=== PATIENT | male | born 1945 | race Caucasian/White ===

== ENCOUNTER 2022-08-24 15:05 | Inpatient (IN) | payer OTHER ==
[~2022-08-24] VITALS: Ht 182.9 cm; Wt 90.7 kg
--- NOTE | 2022-08-24 15:05 | NUR ---
[facility] EMS, pt is waiting in EMS gurney because there are no ER beds available.
[2022-08-24] MEDS ORDERED: ACETAMINOPHEN 325 MG TABLET PO ONE (15:30)
--- NOTE | 2022-08-24 16:05 | NUR ---
Pt was triaged but remains in the EMS gurney in the hallway.
[2022-08-24] MEDS ORDERED: AMLO-212 MT (16:07)
[2022-08-24] MEDS ORDERED: ROSU5TAB13 MT (16:07)
[2022-08-24] MEDS ORDERED: ATOR10TA PO (16:07)
[2022-08-24] MEDS ORDERED: LOSA50TA39 MT (16:07)
[2022-08-24 16:36] LABS: HEMATOCRIT 37.8 % (36.7-47.1); MEAN CORPUSCULAR HEMOGLOBIN 30.6 uug (23.8-33.4); MEAN CORPUSCULAR VOLUME 92.6 fL (73.0-96.2); PLATELET COUNT (AUTO) 124 K/uL (152-348)
--- NOTE | 2022-08-24 16:39 | NUR ---
Pt to room 2A.
[2022-08-24 16:56] LABS: BAND % (MANUAL) 2 % (0-10); LYMPHOCYTES % (MANUAL) 25 % (20-40)
[2022-08-24 16:57] LABS: MONOCYTES % (MANUAL) 15 % (2-10); NEUTROPHILS % (MANUAL) 58 % (42-75)
[2022-08-24 17:00] LABS: CARBON DIOXIDE 26 mmol/L (21-32); CHLORIDE 102 mmol/L (98-107); CREATININE 1.2 mg/dL (0.6-1.3); GLUCOSE 110 mg/dL (74-106); POTASSIUM 3.6 mmol/L (3.5-5.1); UREA NITROGEN, BLOOD 15 mg/dL (7-18)
[2022-08-24 17:08] LABS: ALANINE AMINOTRANSFERASE 23 U/L (16-63); ALKALINE PHOSPHATASE 72 U/L (50-136); ASPARTATE AMINOTRANSFERASE 30 U/L (15-37); BILIRUBIN,DIRECT 0.4 mg/dL (0.0-0.2); TOTAL PROTEIN, SERUM 7.8 g/dL (6.4-8.2)
[2022-08-24] MEDS ORDERED: IV NORMAL SALINE 1000 ML BAG IV ONE (18:15)
--- NOTE | 2022-08-24 19:25 | NUR ---
EVELINA Bowden RN
--- NOTE | 2022-08-24 22:28 | NUR ---
Called [facility] to ask for updates regarding transfer, spoke with Albino and was told that no beds available at this time. Will call me back for updates
--- NOTE | 2022-08-25 01:45 | NUR ---
Called [facility] to ask for updates, spoke with Ezio. was told no beds available at this moment. Will give us a call once they get a transfer info
--- NOTE | 2022-08-25 03:04 | NUR ---
Nathen MARTIN called. Patient is authorized to be admitted at [facility]
--- NOTE | 2022-08-25 03:11 | NUR ---
Called Dr Lerner, made aware that patient was given authorization to stay
--- NOTE | 2022-08-25 03:43 | NUR ---
Called patients bank representative Richard Watkins and left a voicemail regarding patients admission.
--- NOTE | 2022-08-25 04:44 | NUR ---
Called [facility] for panel call
--- NOTE | 2022-08-25 04:49 | NUR ---
Patient has been accepted by [facility]
[2022-08-25 05:28] LABS: *BILIRUBIN,URIN NEGATIVE (NEGATIVE); *CLARITY,URINE CLEAR (CLEAR); *COLOR,URINE YELLOW (YELLOW); *KETONES,URINE NEGATIVE (NEGATIVE); *UROBILINOGEN,URINE 0.2 E.U./dl (NORMAL); LEUKOCYTE ESTERASE ,URINE TRACE (NEGATIVE); NITRITE, URINE NEGATIVE (NEGATIVE); PH,URINE 5.5 (5.0-8.0); UGLUCOSE NEGATIVE (NEGATIVE)
[2022-08-25 05:29] LABS: *BLOOD, URINE TRACE (NEGATIVE)
[2022-08-25 05:30] LABS: BACTERIA,URINE RARE /HPF (NONE SEEN); WBC,URINE 0-3 /HPF (0-3)
[2022-08-25] MEDS ORDERED: MAGNESIUM HYDROXIDE 30 ML LIQUID UDC PO PRN (05:30)
[2022-08-25] MEDS ORDERED: ONDANSETRON 4 MG/2 ML VIAL IV PRN (05:30)
[2022-08-25] MEDS ORDERED: ACETAMINOPHEN 325 MG TABLET PO PRN (05:30)
[2022-08-25] MEDS ORDERED: REMEDY ESSENTIAL ZINC PASTE 113 GM TP PRN (05:30)
[2022-08-25 05:31] LABS: SQUAMOUS EPITHELIAL CELL,UR NONE SEEN /HPF (NONE SEEN)
[2022-08-25] MEDS ORDERED: ENOXAPARIN SODIUM 40 MG/0.4 ML DISP.SYRIN SQ SCH (05:49)
[2022-08-25] MEDS ORDERED: CEFTRIAXONE /D5W 50ML IVPB **ER PYXIS IV ONE (05:57)
[2022-08-25] MEDS: CEFTRIAXONE 1 G in IV DEXTROSE 5% 50 ML IV SCH (06:10)
[2022-08-25 06:15] LABS: MEAN CORPUSCULAR HEMOGLOBIN 30.9 uug (23.8-33.4); MEAN CORPUSCULAR VOLUME 92.7 fL (73.0-96.2); PLATELET COUNT (AUTO) 99 K/uL (152-348)
[2022-08-25 06:21] LABS: CARBON DIOXIDE 27 mmol/L (21-32); CHLORIDE 104 mmol/L (98-107); CREATININE 1.3 mg/dL (0.6-1.3); GLUCOSE 97 mg/dL (74-106); MAGNESIUM 1.8 mg/dL (1.8-2.4); PHOSPHOROUS 3.5 mg/dL (2.5-4.9); UREA NITROGEN, BLOOD 23 mg/dL (7-18)
[2022-08-25] MEDS ORDERED: AZITHROMYCIN 500MG/ D5W 250ML IVPB **ER PYXIS ONLY IV ONE (06:26)
[2022-08-25] MEDS ORDERED: ENOXAPARIN SODIUM 40 MG/0.4 ML DISP.SYRIN SQ ONE (06:26)
[2022-08-25 06:29] LABS: THYROID STIMULATING HORMONE 0.413 mIU/mL (0.358-3.740)
[2022-08-25 06:34] LABS: BILIRUBIN,DIRECT 0.3 mg/dL (0.0-0.2); TOTAL PROTEIN, SERUM 6.8 g/dL (6.4-8.2)
[2022-08-25] MEDS: AZITHROMYCIN IV 500 MG in IV DEXTROSE 5% 250 ML IV SCH ×2 (06:39→07:30)
--- NOTE | 2022-08-25 07:07 | NUR ---
Report given to tim King RN
[2022-08-25] MEDS: LOSARTAN POTASSIUM 50 MG TABLET PO SCH ×2 (09:00→22:04)
[2022-08-25] MEDS: PANTOPRAZOLE SODIUM 40 MG VIAL IV SCH (09:00)
[2022-08-25] MEDS: AMLODIPINE 5 MG TABLET PO SCH (09:00)
[2022-08-25] MEDS ORDERED: AMLODIPINE 5 MG TABLET ONE (09:07)
[2022-08-25] MEDS ORDERED: PANTOPRAZOLE SODIUM 40 MG VIAL ONE (09:07)
[2022-08-25 12:44] LABS: LYMPHOCYTES % (MANUAL) 35 % (20-40); MONOCYTES % (MANUAL) 16 % (2-10); NEUTROPHILS % (MANUAL) 49 % (42-75)
--- NOTE | 2022-08-25 14:00 | NUR ---
Called the tele and asked Diana for any covid bed. No available bed as of now.
--- NOTE | 2022-08-25 18:26 | NUR ---
Called Tele again for update regarding a bed for the covid patient, still no available bed. Notified charge nurse. Served dinner for the patient.
--- NOTE | 2022-08-25 18:29 | NUR ---
[facility] (son) contact # . [facility] () contact # .
--- NOTE | 2022-08-25 19:20 | NUR ---
Endorsed to Kenna FERRARI.
--- NOTE | 2022-08-25 19:21 | NUR ---
GAVIN murphy [facility]
--- NOTE | 2022-08-25 19:30 | NUR ---
Patient has been admitted since 08/24, still no room avaliable. Patient is still in ER and ER charting will be done. Received call from Shala FERRARI, awating for avaliable COVID room. Waiting for call back when bed is ready.
[2022-08-26] MEDS ORDERED: CEFTRIAXONE /D5W 50ML IVPB **ER PYXIS IV ONE (05:45)
[2022-08-26] MEDS: CEFTRIAXONE 1 G in IV DEXTROSE 5% 50 ML IV SCH (05:50)
[2022-08-26 07:06] LABS: HEMATOCRIT 35.8 % (36.7-47.1); MEAN CORPUSCULAR HEMOGLOBIN 30.8 uug (23.8-33.4); MEAN CORPUSCULAR VOLUME 92.2 fL (73.0-96.2); PLATELET COUNT (AUTO) 103 K/uL (152-348)
[2022-08-26 07:15] LABS: CREATININE 1.3 mg/dL (0.6-1.3); MAGNESIUM 1.8 mg/dL (1.8-2.4); PHOSPHOROUS 3.9 mg/dL (2.5-4.9); POTASSIUM 3.4 mmol/L (3.5-5.1)
--- NOTE | 2022-08-26 07:30 | NUR ---
RECEIVED PT IN NAD; VSS. DENIES RESPIRATORY SYMPTOMS; AFEBRILE. RESTING QUIETLY
--- NOTE | 2022-08-26 07:31 | NUR ---
SBAR given to Roshan FERRARI
[2022-08-26] MEDS: LOSARTAN POTASSIUM 50 MG TABLET PO SCH ×2 (09:00→20:51)
[2022-08-26] MEDS: PANTOPRAZOLE SODIUM 40 MG VIAL IV SCH (09:00)
[2022-08-26] MEDS ORDERED: ENOXAPARIN SODIUM 40 MG/0.4 ML DISP.SYRIN SQ SCH (09:00)
[2022-08-26] MEDS: AMLODIPINE 5 MG TABLET PO SCH (09:00)
[2022-08-26] MEDS ORDERED: AMLODIPINE 5 MG TABLET ONE (10:00)
--- NOTE | 2022-08-26 10:25 | NUR ---
PT COMPLAINS OF LT LEG PAIN 8/10 SHARP; WILL GIVE TYLENOL
[2022-08-26] MEDS ORDERED: ENOXAPARIN SODIUM 40 MG/0.4 ML DISP.SYRIN SQ ONE (10:34)
[2022-08-26] MEDS ORDERED: ACETAMINOPHEN 325 MG TABLET ONE (10:39)
[2022-08-26] MEDS ORDERED: PANTOPRAZOLE SODIUM 40 MG VIAL ONE (10:40)
--- NOTE | 2022-08-26 11:15 | NUR ---
PT RESTING IN BED; STATES HIS PAIN ON THE LLE IS NOW 2/10 ACHING; STATES SATISFACTION W/ PAIN RELIEF
[2022-08-26 11:31] LABS: NEUTROPHILS % (MANUAL) 0 % (42-75)
--- NOTE | 2022-08-26 12:00 | NUR ---
PT RESTING IN BED WATCHING TV; VSS
[2022-08-26] MEDS ORDERED: AZITHROMYCIN IV 500 MG in IV DEXTROSE 5% 250 ML IV SCH (13:00)
[2022-08-26] MEDS ORDERED: POTASSIUM CHLORIDE 20 MEQ TAB.PRT.SR PO ONE (15:00)
--- NOTE | 2022-08-26 17:00 | NUR ---
RESTING IN BED; DENIES DISCOMFORT
--- NOTE | 2022-08-26 19:33 | NUR ---
NILSONAR to Candy FERRARI for endorsment of care
[2022-08-26] MEDS ORDERED: ATORVASTATIN 10 MG TABLET PO SCH (21:00)
[2022-08-26] MEDS ORDERED: AZIT250T PO (21:01)
[2022-08-26] MEDS ORDERED: ASCO500P18 PO (21:01)
[2022-08-26] MEDS ORDERED: ASPI-618 PO (21:01)
[2022-08-26] MEDS ORDERED: FURO-152 PO (21:01)
[2022-08-26] MEDS ORDERED: METH4TAB3 PO (21:01)
[2022-08-26 23:26] VITALS: BP 136/67
[2022-08-27] MEDS ORDERED: CEFTRIAXONE 1 G in IV DEXTROSE 5% 50 ML IV SCH (06:00)
[2022-08-27] MEDS ORDERED: AZITHROMYCIN 250 MG TABLET PO SCH (09:00)
[2022-08-28] MEDS ORDERED: NUTRISOURCE FIBER 4 GM PACKET PO SCH (11:00)
== END 2022-08-26 20:00 | disposition home or self-care (01) | DRG 871 ==
LOC: ER 15:05 → TRANSITION 08-25 10:07
PROVIDERS: ADMIT Registered Nurse; ATTEND Internal Medicine
DX: A41.89 Other specified sepsis (principal); G92.8 Other toxic encephalopathy; U07.1 COVID-19; N17.0 Acute kidney failure with tubular necrosis; J21.8 Acute bronchiolitis due to other specified organisms; E87.1 Hypo-osmolality and hyponatremia; N39.0 Urinary tract infection, site not specified; D68.59 Other primary thrombophilia; E78.5 Hyperlipidemia, unspecified; D50.9 Iron deficiency anemia, unspecified; R53.1 Weakness; D69.6 Thrombocytopenia, unspecified; E87.6 Hypokalemia; I10 Essential (primary) hypertension; Z85.01 Personal history of malignant neoplasm of esophagus; Z98.890 Other specified postprocedural states; D64.9 Anemia, unspecified; Z74.09 Other reduced mobility; E86.0 Dehydration; I70.90 Unspecified atherosclerosis; E66.9 Obesity, unspecified; Z68.27 Body mass index [BMI] 27.0-27.9, adult; B96.89 Other specified bacterial agents as the cause of diseases classified elsewhere
CPT/HCPCS: 36415; 70030-TC; 70450; 71045; 83605; 83735; 84100; 84443; 84484; 85025; 85651; 85730; 86140; 87040; 87400; 93005; A4663; C9113; G0378; J0456; J0696; J1650; J7040; J7050